=== PATIENT | male | born 1985 | race African-American/Black ===

== ENCOUNTER 2017-11-27 07:32 | Emergency (ER) | payer OTHER ==
[~2017-11-27 07:32] MED LIST: PRLSR20 PO; ZNTT/150 PO
[2017-11-27 07:48] VITALS: TEMP 37
[2017-11-27] MEDS ORDERED: ONDANSETRON INJ 2 MG/ML 2 ML VIAL IV STA (08:06)
[2017-11-27] MEDS ORDERED: HYDROmorphone INJ 1 MG/ML SYR IV STA (08:06)
[2017-11-27] MEDS ORDERED: KETOROLAC TROMETHAMINE 30 MG/ML VIAL IV STA (08:06)
--- NOTE | 2017-11-27 08:09 | EMERGENCY ROOM VISIT NOTE ---
History Report prepared by Doris: Yareli Schroeder Under the Supervision of: Dr. Pete Melgar M.D. First contact with patient: 07:50 Chief Complaint: ABDOMINAL PAIN Stated Complaint: PAIN IN STOMACH, EXCESSIVE SALIVA, IN LOT OF PAIN History of Present Illness The patient is a 31 year old male who presents to the Emergency Room with complaints of constant abdominal pain beginning last night. He rates his pain at a 10/10. The patient also reports feeling light-headed and nauseous. The patient states that he has had abdominal issues since the age of 24. The patient reports that he has saliva build up and that he often has a loss of appetite and that sometimes he does not eat anything at all. He reports that he had an endoscopy 2 years ago and that he had pyloric stenosis. The patient denies a history of an appendectomy and a cholecystectomy. Source of History: patient Onset: last night Position: abdomen Symptom Intensity: rated at a 10/10 Timing: constant Associated Symptoms: + nausea, + weakness (light-headed) Review of Systems See HPI for pertinent positives & negatives. A total of 10 systems reviewed and were otherwise negative. Past Medical & Surgical Medical Problems: (1) Pyloric stenosis Family History Cancer Social History Smoking Status: Current Every Day Smoker Marital Status: single Current/Historical Medications Scheduled Omeprazole (Prilosec), 20 MG PO BID Ondasetron Odt (Zofran Odt), 4 MG SL Q6H Scheduled PRN Oxycodone/Acetaminophen 5MG/325MG (Percocet 5MG/325MG), 1-2 TAB PO Q4H PRN for Pain Allergies Coded Allergies: No Known Allergies (Unverified , 11/27/17) Physical Exam Vital Signs Date Time Temp Pulse Resp B/P (MAP) Pulse Ox O2 Delivery O2 Flow Rate FiO2 11/27/17 12:12 94 16 125/90 100 11/27/17 10:58 91 20 125/84 100 Room Air 11/27/17 09:32 91 16 122/79 99 Room Air 11/27/17 07:48 37.0 120 20 121/67 100 Room Air Physical Exam GENERAL: Patient is a healthy-appearing well-nourished male HEAD: Normocephalic atraumatic EYES: Ocular movements intact pupils equal and react to light OROPHARYNX mucous membranes are moist no exudates present no erythema or edema present NECK: Supple no nuchal rigidity CHEST: Good equal expansion LUNGS: Clear and equal to auscultation CARDIAC: Normal S1 and S2 ABDOMEN: Soft nontender no guarding BACK: No CVA tenderness EXTREMITIES: No pain upon palpation normal muscle strength in all groups no clubbing cyanosis or edema NEURO: Patient is following commands and answering questions appropriately. Alert and oriented x3 Cranial Nerves 2-12 grossly intact Medical Decision & Procedures ER Provider Diagnostic Interpretation: Radiology results as stated below per my review and radiologist interpretation: CHEST ONE VIEW PORTABLE HISTORY: 31 years-old Male Pt c/o diffuse abd pain acute generalized abdominal pain COMPARISON: None available TECHNIQUE: Portable AP view of the chest FINDINGS: Cardiomediastinal and hilar silhouettes are within normal limits. There is no pneumothorax, pleural effusion, focal airspace consolidation or overt pulmonary edema. Bones of the chest appear grossly intact. IMPRESSION: No acute process. The above report was generated using voice recognition software. It may contain grammatical, syntax or spelling errors. Electronically signed by: Sam Kemp M.D. 11/27/2017 8:20 AM Dictated Date/Time: 11/27/2017 8:19 AM ABDOMEN AND PELVIS CT WITH IV AND ORAL CONTRAST CT DOSE: 363.63 mGy.cm HISTORY: Acute generalized abdominal pain Pt c/o abd poain TECHNIQUE: Multiaxial CT images of the abdomen and pelvis were performed following the use of intravenous and oral contrast. A dose lowering technique was utilized adhering to the principles of ALARA. COMPARISON STUDY: Chest radiograph of same day, acute abdominal series 11/28/2015. FINDINGS: Lung bases are generally clear. No pneumatosis or pneumoperitoneum. Imaged inferior cardiac chambers are unremarkable. The liver, spleen, gallbladder, pancreas and adrenal glands are within normal limits. Kidneys, ureters are within normal limits. Urinary bladder is decompressed. Prostate appears unremarkable. Aorta is normal in both course and caliber. No bulky adenopathy. There is no bowel obstruction or focal bowel wall thickening. Mild colonic diverticulosis, notably within the descending and sigmoid portions. No CT evidence of acute diverticulitis. Appendix appears normal. Postoperative changes from prior left inguinal hernia repair. No recurrent hernia or inguinal inflammatory changes. No ascites. Soft tissues are unremarkable. Bones appear intact. Transitional lumbosacral anatomy is seen with a rudimentary disc space at the S1-S2 level. IMPRESSION: 1. No acute intra-abdominal or intrapelvic abnormality identified. Normal appendix. 2. Mild colonic diverticulosis without diverticulitis. 3. No bowel obstruction or focal bowel wall thickening. 4. Prior left inguinal hernia repair. Electronically signed by: Sam Kemp M.D. 11/27/2017 10:24 AM Dictated Date/Time: 11/27/2017 10:19 AM Laboratory Results 11/27/17 07:55 Red Blood Count 5.87, Mean Corpuscular Volume 85.5, Mean Corpuscular Hemoglobin 29.8, Mean Corpuscular Hemoglobin Concent 34.9, Mean Platelet Volume 10.4, Neutrophils (%) (Auto) 52.4, Lymphocytes (%) (Auto) 36.2, Monocytes (%) (Auto) 10.9, Eosinophils (%) (Auto) 0.3, Basophils (%) (Auto) 0.2, Neutrophils # (Auto ) 3.06, Lymphocytes # (Auto) 2.12, Monocytes # (Auto) 0.64, Eosinophils # (Auto ) 0.02, Basophils # (Auto) 0.01 11/27/17 07:55 Test 11/27/17 07:55 11/27/17 10:00 White Blood Count 5.85 K/uL (4.8-10.8) Red Blood Count 5.87 M/uL (4.7-6.1) Hemoglobin 17.5 g/dL (14.0-18.0) Hematocrit 50.2 % (42-52) Mean Corpuscular Volume 85.5 fL (80-100) Mean Corpuscular Hemoglobin 29.8 pg (25-34) Mean Corpuscular Hemoglobin Concent 34.9 g/dl (32-36) Platelet Count 289 K/uL (130-400) Mean Platelet Volume 10.4 fL (7.4-10.4) Neutrophils (%) (Auto) 52.4 % Lymphocytes (%) (Auto) 36.2 % Monocytes (%) (Auto) 10.9 % Eosinophils (%) (Auto) 0.3 % Basophils (%) (Auto) 0.2 % Neutrophils # (Auto) 3.06 K/uL (1.4-6.5) Lymphocytes # (Auto) 2.12 K/uL (1.2-3.4) Monocytes # (Auto) 0.64 K/uL (0.11-0.59) Eosinophils # (Auto) 0.02 K/uL (0-0.5) Basophils # (Auto) 0.01 K/uL (0-0.2) RDW Standard Deviation 42.1 fL (36.4-46.3) RDW Coefficient of Variation 13.4 % (11.5-14.5) Immature Granulocyte % (Auto) 0.0 % Immature Granulocyte # (Auto) 0.00 K/uL (0.00-0.02) Anion Gap 10.0 mmol/L (3-11) Estimated GFR () 80.9 Estimated GFR (Non- 69.8 BUN/Creatinine Ratio 11.0 (10-20) Calcium Level 10.3 mg/dl (8.5-10.1) Total Bilirubin 0.8 mg/dl (0.2-1) Direct Bilirubin 0.2 mg/dl (0-0.2) Aspartate Amino Transf (AST/SGOT) 13 U/L (15-37) Alanine Aminotransferase (ALT/SGPT) 21 U/L (12-78) Alkaline Phosphatase 98 U/L (45-117) Total Protein 9.4 gm/dl (6.4-8.2) Albumin 5.0 gm/dl (3.4-5.0) Lipase 86 U/L (73-393) Urine Color DK YELLOW Urine Appearance CLEAR (CLEAR) Urine pH 7.5 (4.5-7.5) Urine Specific [place] 1.029 (1.000-1.030) Urine Protein NEG (NEG) Urine Glucose (UA) NEG (NEG) Urine Ketones 2+ (NEG) Urine Occult Blood NEG (NEG) Urine Nitrite NEG (NEG) Urine Bilirubin NEG (NEG) Urine Urobilinogen NEG (NEG) Urine Leukocyte Esterase TRACE (NEG) Urine WBC (Auto) 1-5 /hpf (0-5) Urine RBC (Auto) 0-4 /hpf (0-4) Urine Hyaline Casts (Auto) 5-10 /lpf (0-5) Urine Epithelial Cells (Auto) >30 /lpf (0-5) Urine Bacteria (Auto) NEG (NEG) Urine Renal Epithelial Cells /lpf (0-5) Urine Mucus PRESENT (NONE PRSENT) Urine Opiates Screen POS (NEG) Urine Methadone, Qualitative NEG (NEG) Urine Barbiturates NEG (NEG) Urine Phencyclidine (PCP) Level NEG (NEG) Ur Amphetamine/Methamphetamine NEG (NEG) MDMA (Ecstasy) Screen NEG (NEG) Urine Benzodiazepines Screen NEG (NEG) Urine Cocaine Metabolite NEG (NEG) Urine Marijuana (THC) POS (NEG) Labs reviewed by ED physician. Medications Administered Medications (Trade) Dose Ordered Sig/Jessi Route Start Time Stop Time Status Last Admin Dose Admin Ketorolac Tromethamine (Toradol Inj) 30 mg NOW STAT IV 11/27/17 08:06 11/27/17 08:08 DC 11/27/17 08:26 30 MG Hydromorphone HCl (Dilaudid Inj) 1 mg NOW STAT IV 11/27/17 08:06 11/27/17 08:08 DC 11/27/17 08:26 1 MG Ondansetron HCl (Zofran Inj) 4 mg NOW STAT IV 11/27/17 08:06 11/27/17 08:08 DC 11/27/17 08:26 4 MG Miscellaneous Medication (Gi Cocktail) 24 ml NOW STAT PO 11/27/17 08:52 11/27/17 08:53 DC 11/27/17 09:19 24 ML Famotidine (Pepcid Tab) 20 mg NOW STAT PO 11/27/17 08:52 11/27/17 08:53 DC 11/27/17 09:19 20 MG Sucralfate (Carafate Tab) 1 gm NOW STAT PO 11/27/17 08:52 11/27/17 08:53 DC 11/27/17 09:18 1 GM ED Course 0800: Past medical records reviewed. The patient was evaluated in room A12B. A complete history and physical examination was performed. 0806: Ordered Zofran Inj 4 mg IV, Dilaudid Inj 1 mg, Toradol Inj 30 mg IV. 0852: Ordered Sucralfate 1 gm PO, Famotidine 20 mg PO, Gi Cocktail 24 ml PO. 1000: I checked on the patient. 1137: Ordered Zostrix Crm 1 appin EXT. 1145: Upon reexamination the patient is resting. I discussed results and treatment plan with the patient. He verbalizes agreement and understanding. The patient is ready for discharge. Medical Decision Differential diagnosis: Etiologies such as appendicitis, diverticulitis, PUD, biliary pathology, UTI, pancreatitis, obstruction, mesenteric ischemia, aortic pathology, infections, inflammatory bowel disease, renal colic, as well as others were entertained. This is a 31-year-old male who presents emergency department complaining of abdominal pain and nausea and vomiting that has been ongoing since he was 24 years old. I will note he does not have an elevation in his white blood count cell count. He was given Toradol as well as Dilaudid in the emergency department. Repeat examination revealed improvement patient's symptoms. Serial abdominal examinations were performed on the patient in the emergency department and at no tended patient exhibit a surgical abdomen. Based on the patient's symptoms started as well as his positive for marijuana tox screen I suspect that the patient may be having cyclic vomiting syndrome related to marijuana use. For this reason the patient was given capsaicin. I strongly recommended that the patient follow-up with gastroenterology. Patient was in agreement with the treatment plan. Medication Reconcilliation Current Medication List: was personally reviewed by me Blood Pressure Screening Patient's blood pressure: Elevated blood pressure Blood pressure disposition: Referred to PCP Impression Primary Impression: Abdominal pain Scribe Attestation The scribe's documentation has been prepared under my direction and personally reviewed by me in its entirety. I confirm that the note above accurately reflects all work, treatment, procedures, and medical decision making performed by me. Departure Information Dispostion Home / Self-Care Prescriptions Ondasetron Odt (ZOFRAN ODT) 4 Mg Tab 4 MG SL Q6H for Nausea, #6 TAB Prov: Pete Melgar MD 11/27/17 Oxycodone/Acetaminophen 5MG/325MG (PERCOCET 5MG/325MG) Tab 1-2 TAB PO Q4H Y for Pain, #14 TAB Prov: Pete Melgar MD 11/27/17 Referrals Addie Flowers D.O. (PCP) Forms HOME CARE DOCUMENTATION FORM, IMPORTANT VISIT INFORMATION Patient Instructions Abdominal Pain - [facility], Diet Clear Liquid Dc, My [facility] Additional Instructions Follow up with DR Castillo's office Clear liquid diet next 48 hours You were found to have an elevated blood pressure today (>120 sytolic or >90 diastolic). Per medicare guidelines, you need to follow up with this blood pressure screening with your Primary Care Physician (PCP). For a new PCP call [phone]. You received narcotic or benzodiazepene medication while in the emergency room today. This is an addictive medication that may cause drowziness as well as constipation. Do not drive, operate heavy machinery, or drink alcohol under the influence of this medication. Take 600 mg Ibuprofen every 6 hours Take Percocet for breakthrough pain You have been examined and treated today on an emergency basis only. This is not a substitute for, or an effort to provide, complete comprehensive medical care. It is impossible to recognize and treat all injuries or illnesses in a single emergency department visit. It is therefore important that you follow up closely with Dr Flowers. Call as soon as possible for an appointment. Thank you for your time and consideration. I look forward to speaking with you again soon. Please don't hesitate to call us if you have any questions. Problem Qualifiers Primary Impression: Abdominal pain Abdominal location: generalized Qualified Codes: R10.84 - Generalized abdominal pain
[2017-11-27 08:19] LABS: BASO % 0.2 %; BASO ABS # 0.01 K/uL (0-0.2); EOS % 0.3 %; EOS ABS # 0.02 K/uL (0-0.5); HEMATOCRIT 50.2 % (42-52); HEMOGLOBIN 17.5 g/dL (14.0-18.0); LYMPH % 36.2 %; LYMPH ABS # 2.12 K/uL (1.2-3.4); MEAN CELL VOLUME 85.5 fL (80-100); MEAN CORPUSCULAR HEMOGLOBIN 29.8 pg (25-34); MEAN CORPUSCULAR HGB CONC 34.9 g/dl (32-36); MEAN PLATELET VOLUME 10.4 fL (7.4-10.4); MONO % 10.9 %; MONO ABS # 0.64 K/uL (0.11-0.59); NEUT % 52.4 %; NEUT ABS # 3.06 K/uL (1.4-6.5); PLATELET COUNT 289 K/uL (130-400); RED CELL DISTRIBUTION WIDTH CV 13.4 % (11.5-14.5); RED CELL DISTRIBUTION WIDTH SD 42.1 fL (36.4-46.3); WHITE BLOOD COUNT 5.85 K/uL (4.8-10.8)
--- NOTE | 2017-11-27 08:21 | DIAGNOSTIC IMAGING REPORT ---
CHEST ONE VIEW PORTABLE HISTORY: 31 years-old Male Pt c/o diffuse abd pain acute generalized abdominal pain COMPARISON: None available TECHNIQUE: Portable AP view of the chest FINDINGS: Cardiomediastinal and hilar silhouettes are within normal limits. There is no pneumothorax, pleural effusion, focal airspace consolidation or overt pulmonary edema. Bones of the chest appear grossly intact. IMPRESSION: No acute process. The above report was generated using voice recognition software. It may contain grammatical, syntax or spelling errors. Electronically signed by: Sam Kemp M.D. 11/27/2017 8:20 AM Dictated Date/Time: 11/27/2017 8:19 AM
[2017-11-27 08:25] LABS: ALT/SGPT 21 U/L (12-78); BLOOD UREA NITROGEN 15 mg/dl (7-18); CALCIUM 10.3 mg/dl (8.5-10.1); CARBON DIOXIDE 26 mmol/L (21-32); CREATININE 1.36 mg/dl (0.60-1.40); GLUCOSE 124 mg/dl (70-99); LIPASE 86 U/L (73-393); POTASSIUM 3.9 mmol/L (3.5-5.1); SODIUM 138 mmol/L (136-145)
[2017-11-27 08:28] LABS: ALKALINE PHOSPHATASE 98 U/L (45-117); AST/SGOT 13 U/L (15-37); TOTAL PROTEIN 9.4 gm/dl (6.4-8.2)
[2017-11-27] MEDS ORDERED: GI COCKTAIL PO STA (08:52)
[2017-11-27] MEDS ORDERED: FAMOTIDINE 20 MG TAB PO STA (08:52)
[2017-11-27] MEDS ORDERED: SUCRALFATE 1 GM TAB PO STA (08:52)
[2017-11-27] MEDS ORDERED: ALUMINUM/MAGNESIUM SUSP 30 ML UDC ONE (08:57)
[2017-11-27] MEDS ORDERED: LIDOCAINE HCL 2% VISC SOLN 20 ML UDC ONE (08:57)
[2017-11-27] MEDS ORDERED: OPTIRAY 320 IV PRN (09:15)
--- NOTE | 2017-11-27 10:26 | DIAGNOSTIC IMAGING REPORT ---
ABDOMEN AND PELVIS CT WITH IV AND ORAL CONTRAST CT DOSE: 363.63 mGy.cm HISTORY: Acute generalized abdominal pain Pt c/o abd poain TECHNIQUE: Multiaxial CT images of the abdomen and pelvis were performed following the use of intravenous and oral contrast. A dose lowering technique was utilized adhering to the principles of ALARA. COMPARISON STUDY: Chest radiograph of same day, acute abdominal series 11/28/2015. FINDINGS: Lung bases are generally clear. No pneumatosis or pneumoperitoneum. Imaged inferior cardiac chambers are unremarkable. The liver, spleen, gallbladder, pancreas and adrenal glands are within normal limits. Kidneys, ureters are within normal limits. Urinary bladder is decompressed. Prostate appears unremarkable. Aorta is normal in both course and caliber. No bulky adenopathy. There is no bowel obstruction or focal bowel wall thickening. Mild colonic diverticulosis, notably within the descending and sigmoid portions. No CT evidence of acute diverticulitis. Appendix appears normal. Postoperative changes from prior left inguinal hernia repair. No recurrent hernia or inguinal inflammatory changes. No ascites. Soft tissues are unremarkable. Bones appear intact. Transitional lumbosacral anatomy is seen with a rudimentary disc space at the S1-S2 level. IMPRESSION: 1. No acute intra-abdominal or intrapelvic abnormality identified. Normal appendix. 2. Mild colonic diverticulosis without diverticulitis. 3. No bowel obstruction or focal bowel wall thickening. 4. Prior left inguinal hernia repair. Electronically signed by: Sam Kepm M.D. 11/27/2017 10:24 AM Dictated Date/Time: 11/27/2017 10:19 AM
[2017-11-27] MEDS ORDERED: CAPSAICIN CR 0.075% 60 GM TUBE EXT STA (11:37)
[2017-11-27] MEDS ORDERED: ONDA4TAB10 SL (11:39)
[2017-11-27] MEDS ORDERED: OXYC-57 PO (11:39)
[2017-11-27 12:12] VITALS: BP 125/90; PULSE 94; O2SAT 100
== END 2017-11-27 12:13 | disposition home or self-care (01) ==
LOC: C.EDB 07:36 → C.EDA 12:13
DX: R10.9 Unspecified abdominal pain (principal); R11.2 Nausea with vomiting, unspecified; F12.90 Cannabis use, unspecified, uncomplicated; F17.200 Nicotine dependence, unspecified, uncomplicated; Z80.9 Family history of malignant neoplasm, unspecified